=== PATIENT | female | born 1990 | race African-American/Black ===

== ENCOUNTER 2020-12-13 18:06 | Emergency (ER) | payer SELFPAY ==
[2020-12-13] MEDS ORDERED: Ketorolac Tromethamine 30 MG/ML VIAL ONE (19:36)
[2020-12-13] MEDS ORDERED: Ondansetron ODT 4 MG TAB ONE (19:36)
[2020-12-13] MEDS ORDERED: Acetaminophen 500 MG TAB ONE (19:37)
[2020-12-13] MEDS ORDERED: Promethazine HCl 25 MG/ML VIAL ONE (19:55)
[2020-12-13 20:21] LABS: BHCG - Serum Negative (NEGATIVE); Pregs Control Background? CLEAR/WHITE (CLR/WHITE); Pregs Control Bar Appear? YES (CONTROL BAR)
== END 2020-12-13 21:00 | disposition home or self-care (01) ==
LOC: CSHERS 18:06
DX: R10.30 Lower abdominal pain, unspecified (principal)
CPT/HCPCS: 36415; 84703; 96372; 99284; J1885; J2550; Q0162

== ENCOUNTER 2021-09-09 15:32 | Emergency (ER) | payer SELFPAY ==
[2021-09-09 17:22] LABS: Bilirubin Neg (Negative); Blood, Urine 25 (Negative); Clarity Clear (Clear); Glucose, Urine (Dipstick) Normal (Negative); Ketone, Urine Negative (Negative); Leukocyte Negative (Negative); Nitrite Negative (Negative); Protein, Urine (Dipstick) Negative (Neg-Trace); Urobilinogen Normal mg/dL (Less than 2)
[2021-09-09 17:25] LABS: Pregnancy Test - Urine (BHCG) Negative (Negative); Pregu Control Background? CLEAR/WHITE (CLR/WHITE); Pregu Control Bar Appear? YES (CONTROL BAR)
[2021-09-09 17:31] LABS: Bacteria/HPF None Seen HPF (None Seen); Squamous Epithelial 0-3 HPF (0-3); WBC/HPF None Seen HPF (0-3)
[2021-09-09 18:11] LABS: #Eosinphils 0.2 10x3/uL (0.0-0.5); #Monocytes 0.9 10x3/uL (0.0-1.1); #Neutrophils 6.3 10x3/uL (1.5-8.4); %Basophils 0.4 % (0.0-2.0); %Eosinophils 2.2 % (0.0-6.0); %Lymphocytes 26.1 % (18.0-47.0); %Monocytes 8.5 % (0.0-10.0); %Neutrophils 62.5 % (40.0-75.0); Mean Corpuscular HGB CONC 29.9 g/dL (32.0-36.0); Mean Corpuscular Hemoglobin 23.7 pg (27.0-33.0); Mean Corpuscular Volume 79.3 fl (81.6-98.3); Platelet Count 359 10x3/uL (150-450); RBC Distribution Width 16.1 % (11.5-14.5); Red Blood Cell (RBC) Count 4.64 10x6/uL (3.90-5.03); White Blood Cell (WBC) Count 10.1 10x3/uL (3.5-10.5)
[2021-09-09 18:23] LABS: ALT (SGPT) 15 U/L (8-55); AST (SGOT) 15 U/L (5-34); Albumin 4.1 g/dL (3.5-5.0); Alkaline Phosphatase 47 U/L (40-110); Anion Gap 14 mmol/L (10-20); BUN (Urea Nitrogen) 7 mg/dL (7.0-18.7); Bilirubin, Total 0.3 mg/dL (0.2-1.2); Calc. Creatinine Clearance 0 mL/min (70-130); Calcium 8.7 mg/dL (7.8-10.44); Carbon Dioxide 23 mmol/L (22-29); Chloride 105 mmol/L (98-107); Globulin 2.6 g/dL (2.4-3.5); Glucose 89 mg/dL (70-105); Lipase 63 U/L (8-78); Potassium 4.5 mmol/L (3.5-5.1); Protein, Total 6.7 g/dL (6.0-8.3); Sodium 137 mmol/L (136-145)
[2021-09-09] MEDS ORDERED: Morphine 4 MG/ML VIAL ONE (18:37)
[2021-09-09] MEDS ORDERED: Ketorolac Tromethamine 30 MG/ML VIAL ONE (18:37)
[2021-09-09] MEDS ORDERED: Ondansetron PF 4 MG/2 ML Vial ONE (18:38)
[2021-09-09] MEDS ORDERED: Pantoprazole 40 MG VIAL ONE (18:38)
[2021-09-09 18:58] LABS: Anisocytosis SLIGHT = 6-15 cells (100X) (0-5/hpf); Hypochromia SLIGHT = 6-15 cells (100X) (0-5/hpf); Microcytosis SLIGHT = 6-15 cells (100X) (0-5/hpf); Platelet Morphology Comment Appears Adequate
== END 2021-09-09 19:54 | disposition home or self-care (01) ==
LOC: CSHERS 15:32
DX: A08.4 Viral intestinal infection, unspecified (principal); F17.210 Nicotine dependence, cigarettes, uncomplicated
CPT/HCPCS: 80053; 81003; 81015; 81025; 83690; 84484; 85025; 93005; 96374; 96375; C9113; J1885; J2270; J2405